=== PATIENT | female | born 1985 | race Caucasian/White ===

== ENCOUNTER 2021-10-18 09:42 | Emergency (ER) | payer OTHER | END 2021-10-18 11:47 | disposition home or self-care (01) | LOC: JP.ED 09:42 | DX: S29.011A Strain of muscle and tendon of front wall of thorax, initial encounter (principal); Z88.0 Allergy status to penicillin; Z88.1 Allergy status to other antibiotic agents; Z88.2 Allergy status to sulfonamides; Z72.0 Tobacco use; W18.09XA Striking against other object with subsequent fall, initial encounter | CPT/HCPCS: 71046; 71046-26; 99282; 99283-25 ==